=== PATIENT | male | born 1935 | race Two or more races ===

== ENCOUNTER 2018-06-12 09:02 | Outpatient (CLI) | payer OTHER ==
[~2018-06-12 09:02] MED LIST: ASA81 MG PO; METOPROLOL SUCC25 MG PO; NORFLEX100 MG PO; OMEGA 3 FISH OI1 CAP PO; PRILOSEC20 MG PO; TRAMADOL HCL25 GM MC; XANAX XR0.5 MG PO; ZOCOR20 MG PO
== END 2018-06-12 09:08 | disposition home or self-care (01) ==
LOC: SONOGRAMA 09:02 → MAMO-SONO 09:15
DX: E04.8 Other specified nontoxic goiter (principal)

== ENCOUNTER 2018-06-23 12:45 | Outpatient (CLI) | payer OTHER ==
[~2018-06-23] VITALS: Ht 193 cm; Wt 98.9 kg
== END 2018-06-23 13:00 | disposition home or self-care (01) ==
LOC: OFIC 805 12:45
DX: K21.0 Gastro-esophageal reflux disease with esophagitis (principal); G25.2 Other specified forms of tremor; R13.19 Other dysphagia

== ENCOUNTER 2018-07-09 09:06 | Outpatient (CLI) | payer OTHER | END 2018-07-09 15:56 | disposition home or self-care (01) | LOC: MRI 09:06 | DX: I63.039 Cerebral infarction due to thrombosis of unspecified carotid artery (principal) | CPT/HCPCS: 70551 ==

== ENCOUNTER 2018-08-20 08:25 | Outpatient (CLI) | payer OTHER ==
[~2018-08-20] VITALS: Ht 182.9 cm; Wt 95.3 kg
== END 2018-08-20 08:45 | disposition home or self-care (01) ==
LOC: OFIC 805 08:25
DX: R13.19 Other dysphagia (principal); G25.2 Other specified forms of tremor; K21.9 Gastro-esophageal reflux disease without esophagitis; R49.0 Dysphonia

== ENCOUNTER → 2018-09-06 | Outpatient (CLI) | payer OTHER | END | disposition home or self-care (01) | LOC: WOUND MED 08:36 | DX: L98.492 Non-pressure chronic ulcer of skin of other sites with fat layer exposed (principal); S51.811A Laceration without foreign body of right forearm, initial encounter | CPT/HCPCS: 11042; 11045; G0463; A4554; A4930; A6216; A6219; A6266 ==

== ENCOUNTER → 2018-09-13 | Outpatient (CLI) | payer OTHER | END | disposition home or self-care (01) | LOC: WOUND MED 07:15 | DX: L98.492 Non-pressure chronic ulcer of skin of other sites with fat layer exposed (principal); S51.811D Laceration without foreign body of right forearm, subsequent encounter | CPT/HCPCS: 11042; A4554; A4930; A6216; A6219 ==

== ENCOUNTER → 2018-09-20 | Outpatient (CLI) | payer OTHER | END | disposition home or self-care (01) | LOC: WOUND MED 07:30 | DX: L98.492 Non-pressure chronic ulcer of skin of other sites with fat layer exposed (principal); S51.811D Laceration without foreign body of right forearm, subsequent encounter | CPT/HCPCS: G0463; A4554; A4930; A6216 ==

== ENCOUNTER 2018-10-08 14:35 | Outpatient (CLI) | payer OTHER | END 2018-10-08 17:00 | disposition home or self-care (01) | LOC: RAD 14:35 | DX: M25.511 Pain in right shoulder (principal) ==

== ENCOUNTER 2018-10-09 10:01 | Outpatient (CLI) | payer OTHER | END 2018-10-09 15:47 | disposition home or self-care (01) | LOC: SONOGRAMA 10:01 | DX: S40.011A Contusion of right shoulder, initial encounter (principal); M25.511 Pain in right shoulder ==

== ENCOUNTER → 2018-10-12 | Outpatient (CLI) | payer OTHER | END | disposition home or self-care (01) | LOC: NUCLEAR 10:34 | DX: M81.0 Age-related osteoporosis without current pathological fracture (principal) ==

== ENCOUNTER 2018-10-15 13:05 | Outpatient (CLI) | payer OTHER | END 2018-10-15 13:14 | disposition home or self-care (01) | LOC: MRI 13:05 → RAD 13:05 | DX: M75.121 Complete rotator cuff tear or rupture of right shoulder, not specified as traumatic (principal); M25.511 Pain in right shoulder | CPT/HCPCS: 73218; 73221 ==

== ENCOUNTER 2018-10-18 12:15 | Outpatient (CLI) | payer OTHER | END 2018-10-18 12:24 | disposition home or self-care (01) | LOC: TOM 12:15 | DX: R31.21 Asymptomatic microscopic hematuria (principal) ==

== ENCOUNTER 2018-11-19 06:23 | Outpatient (CLI) | payer OTHER | END 2018-11-19 06:27 | disposition home or self-care (01) | LOC: LAB 06:23 | DX: D64.89 Other specified anemias (principal); E88.89 Other specified metabolic disorders; D68.8 Other specified coagulation defects; Z22.322 Carrier or suspected carrier of Methicillin resistant Staphylococcus aureus; N39.0 Urinary tract infection, site not specified; Z76.89 Persons encountering health services in other specified circumstances; I49.8 Other specified cardiac arrhythmias ==

== ENCOUNTER 2018-11-29 09:26 | Outpatient (CLI) | payer OTHER | END 2018-11-29 09:30 | disposition home or self-care (01) | LOC: LAB 09:26 | DX: Z22.322 Carrier or suspected carrier of Methicillin resistant Staphylococcus aureus (principal) ==

== ENCOUNTER 2019-01-28 11:49 | Outpatient (CLI) | payer OTHER ==
[~2019-01-28] VITALS: Ht 182.9 cm; Wt 98.9 kg
== END 2019-01-28 12:05 | disposition home or self-care (01) ==
LOC: OFIC 805 11:49
DX: H61.23 Impacted cerumen, bilateral (principal); H90.3 Sensorineural hearing loss, bilateral; R13.19 Other dysphagia; M54.2 Cervicalgia

== ENCOUNTER → 2020-02-13 10:51 | Outpatient (CLI) | payer OTHER | END | disposition home or self-care (01) | LOC: RAD 10:51 → LAB 10:51 | DX: M25.572 Pain in left ankle and joints of left foot (principal) ==

== ENCOUNTER → 2020-02-18 | Outpatient (CLI) | payer OTHER | END | disposition home or self-care (01) | LOC: MRI 08:06 | PROVIDERS: ATTEND Orthopaedic Surgery | DX: M25.062 Hemarthrosis, left knee (principal) | CPT/HCPCS: 73721 ==

== ENCOUNTER 2020-08-17 09:47 | Outpatient (CLI) | payer OTHER | END 2020-08-17 10:01 | disposition HB | LOC: RAD 09:47 | PROVIDERS: ATTEND Orthopaedic Surgery | DX: M12.862 Other specific arthropathies, not elsewhere classified, left knee (principal); M25.562 Pain in left knee ==

== ENCOUNTER → 2020-08-17 | Outpatient (CLI) | payer OTHER | END | disposition home or self-care (01) | LOC: MRI 12:28 | PROVIDERS: ATTEND Orthopaedic Surgery | DX: M17.12 Unilateral primary osteoarthritis, left knee (principal); M25.062 Hemarthrosis, left knee | CPT/HCPCS: 73721 ==

== ENCOUNTER → 2020-09-08 | Outpatient (CLI) | payer OTHER | END | disposition home or self-care (01) | LOC: RAD 13:12 | PROVIDERS: ATTEND Orthopaedic Surgery | DX: M25.752 Osteophyte, left hip (principal); I70.8 Atherosclerosis of other arteries; M25.552 Pain in left hip; M17.12 Unilateral primary osteoarthritis, left knee; M23.262 Derangement of other lateral meniscus due to old tear or injury, left knee; M23.232 Derangement of other medial meniscus due to old tear or injury, left knee ==

== ENCOUNTER 2021-02-06 15:18 | Emergency (ER) | payer OTHER ==
[~2021-02-06] VITALS: Ht 182.9 cm; Wt 81.6 kg
[2021-02-06] MEDS ORDERED: XARELTO15 MG (15:35)
[2021-02-06] MEDS ORDERED: FOLIC ACID20 MG (15:35)
[2021-02-06] MEDS ORDERED: TAMS0.4C (15:36)
[2021-02-06] MEDS ORDERED: FINASTERIDE5 MG (15:36)
[2021-02-06] MEDS ORDERED: DILTIAZEM ER180 M1 (15:36)
== END 2021-02-06 19:10 | disposition home or self-care (01) ==
LOC: ER 15:18
DX: S01.02XA Laceration with foreign body of scalp, initial encounter (principal); M54.2 Cervicalgia; I51.7 Cardiomegaly; W01.198A Fall on same level from slipping, tripping and stumbling with subsequent striking against other object, initial encounter; Y93.01 Activity, walking, marching and hiking; Y92.038 Other place in apartment as the place of occurrence of the external cause; Y99.8 Other external cause status; Z95.1 Presence of aortocoronary bypass graft

== ENCOUNTER 2021-02-14 11:20 | Emergency (ER) | payer OTHER ==
[~2021-02-14] VITALS: Ht 193 cm; Wt 90.7 kg
[~2021-02-14 11:20] MED LIST changes: +DILTIAZEM ER180 M1; +FINASTERIDE5 MG; +FOLIC ACID20 MG; +TAMS0.4C; +XARELTO15 MG
[2021-02-14] MEDS ORDERED: MULTAQ400 MG (11:48)
== END 2021-02-14 12:54 | disposition home or self-care (01) ==
LOC: ER 11:20
DX: Z48.02 Encounter for removal of sutures (principal)

== ENCOUNTER 2021-04-08 08:42 | Outpatient (CLI) | payer OTHER ==
[~2021-04-08 08:42] MED LIST changes: +MULTAQ400 MG
== END 2021-04-08 08:44 | disposition home or self-care (01) ==
LOC: NUCLEAR 08:42
PROVIDERS: ATTEND Internal Medicine Cardiovascular Disease
DX: I10 Essential (primary) hypertension (principal); I50.9 Heart failure, unspecified

== ENCOUNTER 2022-01-31 11:54 | Outpatient (CLI) | payer OTHER | END 2022-01-31 11:56 | disposition home or self-care (01) | LOC: RAD 11:54 | PROVIDERS: ATTEND Physical Medicine & Rehabilitation | DX: M54.50 Low back pain, unspecified (principal); W19.XXXA Unspecified fall, initial encounter; M16.11 Unilateral primary osteoarthritis, right hip; M25.561 Pain in right knee; M25.562 Pain in left knee ==

== ENCOUNTER 2022-02-10 11:29 | Outpatient (CLI) | payer OTHER | END 2022-02-10 11:31 | disposition home or self-care (01) | LOC: RAD 11:29 | PROVIDERS: ATTEND Internal Medicine Cardiovascular Disease | DX: R10.9 Unspecified abdominal pain (principal) ==

== ENCOUNTER 2022-02-12 09:27 | Emergency (ER) | payer OTHER ==
[~2022-02-12] VITALS: Ht 182.9 cm; Wt 53.5 kg
== END 2022-02-12 12:41 | disposition home or self-care (01) ==
LOC: ER 09:27
DX: K59.09 Other constipation (principal)

== ENCOUNTER 2022-02-22 07:51 | Outpatient (CLI) | payer OTHER | END 2022-02-22 08:20 | disposition home or self-care (01) | LOC: MRI 07:51 | PROVIDERS: ATTEND Physical Medicine & Rehabilitation | DX: M54.50 Low back pain, unspecified (principal); W19.XXXA Unspecified fall, initial encounter | CPT/HCPCS: 72148 ==

== ENCOUNTER 2022-03-10 07:17 | Outpatient (CLI) | payer OTHER | END 2022-03-10 07:38 | disposition home or self-care (01) | LOC: MRI 07:17 | PROVIDERS: ATTEND Physical Medicine & Rehabilitation | DX: M79.81 Nontraumatic hematoma of soft tissue (principal); K59.00 Constipation, unspecified; R10.9 Unspecified abdominal pain | CPT/HCPCS: 72148 ==

== ENCOUNTER 2022-04-01 08:07 | Outpatient (CLI) | payer OTHER | END 2022-04-01 10:54 | disposition home or self-care (01) | LOC: MRI 08:07 | PROVIDERS: ATTEND Internal Medicine Gastroenterology | DX: N28.89 Other specified disorders of kidney and ureter (principal) | CPT/HCPCS: 74183; Q9965; 74182 ==

== ENCOUNTER 2022-06-24 07:10 | Outpatient (CLI) | payer OTHER | END 2022-06-24 07:12 | disposition home or self-care (01) | LOC: NUCLEAR 07:10 | PROVIDERS: ATTEND Urology | DX: C74.92 Malignant neoplasm of unspecified part of left adrenal gland (principal); Z88.8 Allergy status to other drugs, medicaments and biological substances | CPT/HCPCS: 78816; A9552 ==

== ENCOUNTER 2023-03-14 14:09 | Outpatient (CLI) | payer OTHER | END 2023-03-14 14:13 | disposition home or self-care (01) | LOC: RAD 14:09 | PROVIDERS: ATTEND Physical Medicine & Rehabilitation | DX: M54.2 Cervicalgia (principal); M54.6 Pain in thoracic spine; M54.59 Other low back pain; M25.511 Pain in right shoulder; W19.XXXA Unspecified fall, initial encounter ==

== ENCOUNTER 2023-05-23 07:39 | Outpatient (CLI) | payer OTHER | END 2023-05-23 07:45 | disposition home or self-care (01) | LOC: MRI 07:39 | PROVIDERS: ATTEND Physical Medicine & Rehabilitation | DX: M54.59 Other low back pain (principal) | CPT/HCPCS: 72148 ==

== ENCOUNTER 2023-09-14 15:27 | Outpatient (CLI) | payer OTHER | END 2023-09-14 15:35 | disposition home or self-care (01) | LOC: RAD 15:27 | PROVIDERS: ATTEND Orthopaedic Surgery | DX: M54.50 Low back pain, unspecified (principal); M25.551 Pain in right hip; M25.552 Pain in left hip; M25.532 Pain in left wrist; Z88.5 Allergy status to narcotic agent ==

== ENCOUNTER 2023-09-15 10:44 | Outpatient (CLI) | payer OTHER | END 2023-09-15 10:54 | disposition home or self-care (01) | LOC: MRI 10:44 | PROVIDERS: ATTEND Orthopaedic Surgery | DX: M25.552 Pain in left hip (principal); M25.532 Pain in left wrist | CPT/HCPCS: 73221; 73721 ==